=== PATIENT | female | born 1955 | race Caucasian/White ===

== ENCOUNTER 2020-08-16 14:00 | Emergency (ER) | payer MEDICARE, OTHER ==
[2020-08-16 19:33] LABS: HEMOGLOBIN 13.1 gm/dl (12.3-15.3); RED BLOOD COUNT 4.46 M/UL (4.00-5.10); WHITE BLOOD COUNT 7.2 K/UL (4.5-11.0)
[2020-08-16] MEDS ORDERED: KEFLEX750 MG PO (20:35)
== END 2020-08-16 20:55 | disposition home or self-care (01) ==
LOC: ER1 14:00
PROVIDERS: Family Medicine
DX: E11.65 Type 2 diabetes mellitus with hyperglycemia (principal); N39.0 Urinary tract infection, site not specified
CPT/HCPCS: 80053; 81001; 82962; 85025; 99284

== ENCOUNTER → 2020-08-25 | Outpatient (CLI) | payer MEDICARE, OTHER ==
[~2020-08-25] MED LIST: KEFLEX750 MG PO
== END ==
LOC: HEART 5 13:09
DX: R60.0 Localized edema (principal); E11.9 Type 2 diabetes mellitus without complications; I10 Essential (primary) hypertension; E78.5 Hyperlipidemia, unspecified; Z72.0 Tobacco use; I73.9 Peripheral vascular disease, unspecified; R20.0 Anesthesia of skin; M79.659 Pain in unspecified thigh; M79.673 Pain in unspecified foot; M79.669 Pain in unspecified lower leg

== ENCOUNTER → 2020-09-14 | Outpatient (CLI) | payer MEDICARE, OTHER | LOC: ECHO 10:42 | DX: R07.9 Chest pain, unspecified (principal) | CPT/HCPCS: ECHO; 93306 ==

== ENCOUNTER 2020-09-23 17:43 | Emergency (ER) | payer MEDICARE, OTHER | END 2020-09-23 20:22 | disposition home or self-care (01) | LOC: ER1 17:43 | DX: R60.0 Localized edema (principal); R79.1 Abnormal coagulation profile; E11.9 Type 2 diabetes mellitus without complications; I10 Essential (primary) hypertension; F17.210 Nicotine dependence, cigarettes, uncomplicated; Z86.718 Personal history of other venous thrombosis and embolism; Z79.82 Long term (current) use of aspirin; Z88.2 Allergy status to sulfonamides; Z88.8 Allergy status to other drugs, medicaments and biological substances | CPT/HCPCS: 71045; 83880; 85379; 85610; 85730; 99283; J1650 ==

== ENCOUNTER → 2020-09-24 | Outpatient (CLI) | payer MEDICARE, OTHER | LOC: US 15:21 | DX: R60.0 Localized edema (principal); R78.89 Finding of other specified substances, not normally found in blood | CPT/HCPCS: 93971 ==

== ENCOUNTER → 2020-10-22 | Outpatient (CLI) | payer MEDICARE, OTHER | LOC: EXRD 14:02 | DX: M79.89 Other specified soft tissue disorders (principal) | CPT/HCPCS: 93925 ==